=== PATIENT | female | born 1965 | race Caucasian/White ===

== ENCOUNTER → 2016-10-28 | Outpatient (CLI) | payer BC ==
--- NOTE | 2016-10-28 17:38 | DX ---
PA and Lateral Chest History: 51-year-old female with cough x2.5 months; comparison February 28, 2014. Findings: The heart and mediastinal contours are normal. Pulmonary vascularity is normal. There is c entral peribronchial thickening. The peribronchial thickening is more pronounced on the prior study. There are no alveolar opacities seen to suggest pneumonia. Stable postoperative changes are seen in t he lower cervical spine. Impression: Findings consistent with bronchitis are noted.
== END ==
LOC: BRMIMAGING 12:40
PROVIDERS: ATTEND Physician Assistant Medical
DX: J40 Bronchitis, not specified as acute or chronic (principal)
CPT/HCPCS: 71020-PO

== ENCOUNTER → 2016-12-17 | Outpatient (CLI) | payer BC | LOC: BRMIMAGING 14:24 | DX: Z12.31 Encounter for screening mammogram for malignant neoplasm of breast (principal) | CPT/HCPCS: G0202 ==

== ENCOUNTER → 2018-07-20 | Outpatient (CLI) | payer BC | LOC: BRMIMAGING 08:06 | PROVIDERS: ATTEND Physician Assistant Medical | DX: R22.1 Localized swelling, mass and lump, neck (principal); E04.1 Nontoxic single thyroid nodule ==